=== PATIENT | male | born 1970 | race Caucasian/White ===

== ENCOUNTER 2023-02-05 10:46 | Outpatient (CLI) | payer BC, SELFPAY ==
--- NOTE | 2023-02-05 11:04 | MR_ITS ---
WS: [id number] MRI CERVICAL SPINE NONCONTRAST TECHNIQUE: Sagittal T1, T2 and STIR imaging. Axial T2, gradient, and fiesta imaging. CLINICAL INFORMATION: CHRONIC NECK PAIN COMPARISON: None. FINDINGS: Straightening of the normal cervical lordosis. Disc osteophyte complex worse at C5-C6 endplate degene rative changes. Moderate central canal stenosis at this level with indentation slight flattening of t he cervical cord. C2-C3: Mild facet arthropathy. Mild LEFT and no significant RIGHT foraminal narrowing. C3-C4: Mild LEFT and no RIGHT foraminal narrowing. Mild facet arthropathy. Spinal canal is patent. C4-C5: Mild disc osteophytic ridging. Slight effacement of ventral thecal sac. Mild LEFT greater than RIGHT bony foraminal narrowing. Mild facet arthropathy. C5-C6: Disc osteophyte complex with moderate central canal stenosis. Indentation and flattening of th e cervical cord. Severe bilateral bony foraminal narrowing. C6-C7: Mild disc osteophyte complex with endplate ridging. Mild/moderate bilateral bony foraminal kaylin rowing. Mild facet arthropathy. C7-T1: Normal. Visualized brain stem structures: Normal. Prevertebral soft tissues: Normal. MR/MR cervical spin wo con* [id number] IMPRESSION: 1. Straightening with slight reversal normal cervical lordosis. 2. Moderate central canal stenosis C5-C6 due to disc osteophyte complex with i ndentation flattening of the cervical cord. 3. Severe bilateral bony foraminal narrowing C5-C6. 4. Otherwise mild to moderate bony foraminal narrowing worse at LEFT C4-C5 and bilateral C6-C7.
--- NOTE | 2023-02-05 11:05 | MR_ITS ---
WS: [id number] MRI THORACIC SPINE WITHOUT CONTRAST TECHNIQUE: Sagittal T1, T2 and STIR imaging. Axial T2 imaging. Noncontrast imaging obtained. CLINICAL INFORMATION: CHRONIC THORACIC PAIN COMPARISON: None. FINDINGS: Mild thoracic curve. No acute compression. No high-grade central canal stenosis. Cord signal is brandt l. No significant disc extrusion or protrusion. Mild facet arthropathy lower thoracic spine. Mild dez ateral T10-T11 and T11-T12 bony foraminal narrowing. Normal caliber thoracic aorta. Adrenal glands are normal. MR/MR thoracic spin wo con* [id number] IMPRESSION: 1. Mild thoracic curve. No acute compression. No high-grade central canal sten osis. 2. Cord signal is normal. 3. Mild facet arthropathy lower thoracic spine. 4. Mild bilateral bony foraminal narrowing T10-T11 and T11-T12.
== END 2023-02-05 10:47 | disposition home or self-care (01) ==
PROVIDERS: PCP Nurse Practitioner Family; Visit Provider Nurse Practitioner Family
DX: M54.12 Radiculopathy, cervical region (principal); M48.02 Spinal stenosis, cervical region; M47.814 Spondylosis without myelopathy or radiculopathy, thoracic region; M25.78 Osteophyte, vertebrae; G89.29 Other chronic pain
CPT/HCPCS: 72141; 72146

== ENCOUNTER → 2023-02-12 08:12 | Outpatient (BNVA) | payer BC, SELFPAY | PROVIDERS: PCP Nurse Practitioner Family; Visit Provider Orthopaedic Surgery | DX: M47.22 Other spondylosis with radiculopathy, cervical region (principal); M54.2 Cervicalgia; M54.9 Dorsalgia, unspecified | CPT/HCPCS: 72050; 72070 ==

== ENCOUNTER 2023-03-19 08:10 | Outpatient (RCR) | payer BC, SELFPAY | END 2023-04-08 23:59 | disposition home or self-care (01) | LOC: SPT 08:10 | PROVIDERS: PCP Nurse Practitioner Family; Visit Provider Orthopaedic Surgery | DX: M47.22 Other spondylosis with radiculopathy, cervical region (principal) | CPT/HCPCS: 97110; 97161 ==

== ENCOUNTER 2023-04-09 06:00 | Outpatient (RCR) | payer BC, SELFPAY | END 2023-04-26 23:59 | disposition home or self-care (01) | LOC: SPT 06:00 | PROVIDERS: PCP Nurse Practitioner Family; Visit Provider Orthopaedic Surgery | DX: M47.22 Other spondylosis with radiculopathy, cervical region (principal) | CPT/HCPCS: 97110 ==

== ENCOUNTER 2024-11-01 01:54 | Emergency (ER) | payer BC, SELFPAY ==
[2024-11-01 02:10] VITALS: BP 152/96; PULSE 67; RESP 20; TEMP 36.6; O2SAT 96; BMI 32.1
--- NOTE | 2024-11-01 02:20 | CTR_ITS ---
PROCEDURE INFORMATION: Exam: CT Abdomen And Pelvis Without Contrast Exam date and time: 11/01/2024 2:25 AM Age: 54 years old Clinical indication: Abdominal pain; Right; C/O RT flank pain; Additional info: R flank pain TECHNIQUE: Imaging protocol: Computed tomography of the abdomen and pelvis without contrast. Radiation optimization: All CT scans at this facility use at least one of these dose optimization techniques: automated exposure control; mA and/or kV adjustment per patient size (includes targeted exams where dose is matched to clinical indication); or iterative reconstruction. COMPARISON: MR thoracic spin wo con* [id number] 02/05/2023 12:01 PM RADIATION DOSE METRICS: Total DLP (mGy-cm): 1087.83 FINDINGS: Liver: Normal. No mass. Gallbladder and biliary ducts: Normal. No calcified stones. No ductal dilation. Pancreas: Normal. No ductal dilation. Spleen: Normal. No splenomegaly. Adrenal glands: Normal. No mass. Kidneys and ureters: Additional small nonobstructive bilateral renal stones. Scarring lower pole left kidney. Right perinephric and periureteral stranding. Stomach and bowel: Unremarkable. No obstruction. No mucosal thickening. Appendix: No evidence of appendicitis. Intraperitoneal space: Unremarkable. No free air. No significant fluid collection. Vasculature: Unremarkable. No abdominal aortic aneurysm. Lymph nodes: Unremarkable. No enlarged lymph nodes. Urinary bladder: Unremarkable as visualized. Reproductive: There is moderate prostate hypertrophy. Bones/joints: There is a 7 x 5 mm stone in the mid right ureter at the level of the sacroiliac joint causing mild hydronephrosis. Soft tissues: Unremarkable. CT/CT kidney stone [id number] IMPRESSION: There is a 7 x 5 mm stone in the mid right ureter at the level of the sacroiliac joint causing mild hydronephrosis.
[2024-11-01 02:40] VITALS: BP 152/96; PULSE 68; RESP 20; O2SAT 97
--- NOTE | 2024-11-01 02:40 | ED_ITS ---
HPI - Male Genitourinary 2 General: Chief complaint: Urogenital-Male Stated complaint: Kidney Stone Pain lower right back Time Seen by Provider: 11/01/24 02:08 History of Present Illness: 54-year-old male with a history of kidne y stones. He presents with relatively sudden onset of right flank pain last night. Has had some associated nausea. He took medication at home which seemed to improve his symptoms to some degree. Pain is now coming and going. No fever. Urine looks darker than normal. Related Data Home Medications ?Medication ?Instructions ?Recorded ?Confirmed ibuprofen 200 mg capsule 200 mg PO Q6H PRN 02/12/23 0 03/05/23 Previous Rx's ?Medication ?Instructions ?Recorded ondansetron 4 mg disintegrating 4 mg PO Q6H PRN nausea and 11/01/24 tablet vomiting #14 tabs oxycodone-acetaminophen 7.5 mg-325 1 tab PO Q6H PRN pa in #10 tabs 11/01/24 mg tablet (Percocet) tamsulosin 0.4 mg capsule (Flomax) 0.4 mg PO DAILY #7 caps 11/01/24 Allergies Allergy/AdvReac Type Severity Reaction Status Date / Time No Known Allergies Allergy Unverified 03/05/23 14:19 PFSH ED 2 PFSH: Social History Smoking and tobacco/nicotine status: current every day tobacco/nicotine user Quit status (tobacco/nicotine): considering quitting Alcohol intake: current Alcohol intake frequency: holidays/special occasions only Physical Exam 2 Const: COMMON NORMALS: no acute distress GENERAL APPEARANCE: cooperative; not frail appearing HENMT: COMMON NORMALS: normocephalic, atraumatic and Normal external nose present HEAD & SCALP: normocephalic and atraumatic FACE & SINUS: normal facial exam and face symmetric NOSE: Normal external nose present Eye: COMMON NORMALS: Equal, round and reactive pupils present and EOMs intact bilaterally PUPIL: Yes Equal, round and reactive pupils present Neck/C-Spine: GENERAL: Yes trachea midline Chest: CHEST: Yes Symmetrical chest wall rise Resp: COMMON NORMALS: normal respiratory effort, No retractions, No use of accessory muscles and clear to auscultation bilaterally AUSCULTATION: clear to auscultation bilaterally Cardio: COMMON NORMALS: regular rate and regular rhythm RATE: regular rate RHYTHM: regular rhythm GI: COMMON NORMALS: Normal to inspection, nondistended, normoactive bowel sounds present PALPATION: Yes Tenderness to palpation present (GI) Details: RLQ : BLADDER/KIDNEY EXAM: Yes CVA tenderness on the right Back/Pelvis: GENERAL BACK: Yes CVA tenderness Extremity: COMMON NORMALS: no pedal edema Neuro: SIOBHAN COMA SCALE: document GCS findings Tappen coma scale eye opening: Spontaneous Siobhan coma scale verbal response: Orientated Siobhan coma scale motor response: Obey commands Siobhan coma scale total score: 15 S ENSORY EXAM: Yes extremities (intact) Psych: COMMON NORMALS: speech normal SPEECH: Yes normal speech Skin: COMMON NORMALS: no rashes or lesions noted GENERAL SKIN EXAM: no rashes or lesions noted Course 2 Vital Signs: Vital signs: Vital Signs Temperature 98 F 11/01/24 02:10 Pulse Rate 68 11/01/24 02:40 Respiratory Rate 20 H 11/01/24 02:40 Blood Pressure 152/96 11/01/24 02:40 Pulse Oximetry 97 11/01/24 02:40 MDM - Male Medical Decision Making Vitals are stable. He is pain-free currently. His CBC is normal. BMP is not remarkable. Abdominal CT shows a 5 x 7 mm stone in the mid right ureter. No infection. Pain medication, Flomax. Follow-up with urology as an outpatient. Lab Data 11/01/24 02:48 11/01/24 02:48 Radiology Impressions Abdomen/Pelvis CT 11/01/24 02:20 IMPRESSION: There is a 7 x 5 mm stone in the mid right ureter at the level of the sacroiliac joint causing mild hydronephrosis. Laboratory Results WBC 10.67 10^3/uL (3.29-11.43) 11/01/24 02:48 Corrected WBC Cancelled 11/01/24 02:08 RBC 4.84 10^6/uL (3.85-5.65) 11/01/24 02:48 Hgb 14.70 g/dL (11.27-16.99) 11/01/24 02:48 Hct 43.5 % (37-53) 11/01/24 02:48 MCV 89.9 fl (82-101) 11/01/24 02:48 MCH 30.4 pg (27-33) 11/01/24 02:48 MCHC 33.8 g/dL (30-55) 11/01/24 02:48 RDW 12.8 % (12.1-15.1) 11/01/24 02:48 Plt Count 199 10^3/cmm (157-399) 11/01/24 02:48 MPV 9.4 fL (7.4-10.4) 11/01/24 02:48 Gran % Cancelled 11/01/24 02:08 Neut % (Auto) 81.8 % 11/01/24 02:48 Lymph % (Auto) 11.5 % 11/01/24 02:48 [place] % (Auto) 5.3 % 11/01/24 02:48 Eos % (Auto) 0.7 % 11/01/24 02:48 Baso % (Auto) 0.4 % 11/01/24 02:48 Neut # (Auto) 8.73 10^3/uL (1.8-7.7) H 11/01/24 02:48 Lymph # (Auto) 1.2 10^3/uL (0.8-4.8) 11/01/24 02:48 [place] # (Auto) 0.6 10^3/uL (0.2-0.9) 11/01/24 02:48 Eos # (Auto) 0.1 10^3/uL (0.0-0.8) 11/01/24 02:48 Baso # (Auto) 0.0 10^3/uL (0.0-0.1) 11/01/24 02:48 Absolute Gran (auto) Cancelled 11/01/24 02:08 Nucleated RBC % (auto) 0 % 11/01/24 02:48 Nucleated RBCs # 0.0 /100WBC 11/01/24 02:48 Sodium 140 mmol/L (136-145) 11/01/24 02:48 Potassium 3.9 mmol/L (3.5-5.1) 11/01/24 02:48 Chloride 106 mmol/L (98-107) 11/01/24 02:48 Carbon Dioxide 26 mmol/L (22-29) 11/01/24 02:48 Anion Gap 11.9 (5-19) 11/01/24 02:48 BUN 24 mg/dL (6-20) H 11/01/24 02:48 Creatinine 1.0 mg/dL (0.7-1.2) 11/01/24 02:48 GFR Calculation 77.3 mL/min (90-130) L 11/01/24 02:48 Glucose 120 mg/dL (65-115) H 11/01/24 02:48 Calculated Osmolality 295 mOsm/kg (285-295) 11/01/24 02:48 Calcium 8.5 mg/dL (8.5-10.5) 11/01/24 02:48 Total Bilirubin 0.4 mg/dL (0.15-1.2) 11/01/24 02:48 Direct Bilirubin 0.20 mg/dL (0.00-0.30) 11/01/24 02:48 AST 11 U/L (0-40) 11/01/24 02:48 ALT 17 U/L (0-41) 11/01/24 02:48 Alkaline Phosphatase 86 U/L (40-130) 11/01/24 02:48 C-Reactive Protein 3.0 mg/L (0.0-4.9) 11/01/24 02:48 Total Protein 6.1 g/dL (6.6-8.7) L 11/01/24 02:48 Albumin 4.0 g/dL (3.5-5.2) 11/01/24 02:48 Globulin 2.1 g/dL (1.3-4.6) 11/01/24 02:48 Lipase 26 U/L (13-60) 11/01/24 02:48 Urine Color Yellow (Yellow) 11/01/24 03:23 Urine Appearance Clear (CLEAR) 11/01/24 03:23 Urine pH 5.5 (5-7) 11/01/24 03:23 Ur Specific [place] 1.016 (1.005-1.030) 11/01/24 03:23 Urine Protein Trace (Negative) A 11/01/24 03:23 Urine Glucose (UA) Negative (Normal) 11/01/24 03:23 Urine Ketones Negative (Negative) 11/01/24 03:23 Urine Blood 2+ (Negative) A 11/01/24 03:23 Urine Nitrate Negative (Negative) 11/01/24 03:23 Urine Bilirubin Negative (Negative) 11/01/24 03:23 Urine Urobilinogen 1.0 mg/dL (Negative) 11/01/24 03:23 Ur Leukocyte Esterase Negative (Negative) 11/01/24 03:23 Urine RBC 5-10 /hpf (0-2) H 11/01/24 03:23 Urine WBC 0-4 /hpf (0-5) H 11/01/24 03:23 Ur Squamous Epith Cells 0-4 /hpf (0-5) H 11/01/24 03:23 Amorphous Sediment Not Reportable 11/01/24 03:23 Urine Bacteria Trace /hpf (NONE) 11/01/24 03:23 All radiology interpretation(s) finalized by discharge Discharge Plan Discharge Patient Disposition: Home Clinical Impression: Ureterolithiasis Condition: Stable Prescriptions: New oxycodone-acetaminophen [Percocet] 7.5-325 mg tablet 1 tab PO Q6H PRN (Reason: pain) Qty: 10 0RF ondansetron 4 mg tablet,disintegrating 4 mg PO Q6H PRN (Reason: nausea and vomiting) Qty: 14 0RF tamsulosin [Flomax] 0.4 mg capsule 0.4 mg PO DAILY Qty: 7 0RF Discontinued hydrocodone-acetaminophen 5-325 mg tablet 1 tab PO BID PRN No Action ibuprofen 200 mg capsule 200 mg PO Q6H PRN Discharge Orders: Discharge ED (Routine); Ordered 11/01/24 Ordered By: Jonathan Stephenson Referrals: Cj Pickett [Referring] - 4-7 days Ny Kline APRN [Primary Care Provider] - Patient Instructions: Kidney Stones (ED), Opioid Safety, Pain Management Activity Restrictions/Additional Instructions: You may alternate pain medication with anti-inflammatories such as ibuprofen. Other medications as directed. Drink plenty of clear liquids. Call urology Saturday morning for a follow-up appointment next week. Print Language: Thai Coding Level of Care Code ED Coordinate Measuring Machine Operator for Uli Johnston
[2024-11-01] MEDS: ketorolac 30 mg/mL INJ IVP (02:41)
[2024-11-01] MEDS: morphine 4 mg/mL SDV 1 mL IVP (02:42)
[2024-11-01] MEDS: ondansetron 2 mg/ML SDV 2 mL 4 MG IVP (02:42)
[2024-11-01 02:53] LABS: Basophils % 0.4 %; Eosinophils # 0.1 10^3/uL (0.0-0.8); Eosinophils % 0.7 %; Hematocrit 43.5 % (37-53); Lymphocytes # 1.2 10^3/uL (0.8-4.8); Lymphocytes % 11.5 %; Mean Corpuscular HGB Conc 33.8 g/dL (30-55); Mean Corpuscular Hemoglobin 30.4 pg (27-33); Mean Corpuscular Volume 89.9 fl (82-101); Mean Platelet Volume 9.4 fL (7.4-10.4); Monocytes # 0.6 10^3/uL (0.2-0.9); Monocytes % 5.3 %; Neutrophils # 8.73 10^3/uL (1.8-7.7); Neutrophils % 81.8 %; Nucleated Red Blood Cells % 0 %; Platelet Count 199 10^3/cmm (157-399); Red Blood Count 4.84 10^6/uL (3.85-5.65); Red Cell Distribution Width 12.8 % (12.1-15.1); White Blood Count 10.67 10^3/uL (3.29-11.43)
[2024-11-01 03:20] LABS: Alanine Aminotransferase 17 U/L (0-41); Alkaline Phosphatase 86 U/L (40-130); Anion Gap 11.9 (5-19); Aspartate Amino Transferase 11 U/L (0-40); Blood Urea Nitrogen 24 mg/dL (6-20); Calcium 8.5 mg/dL (8.5-10.5); Carbon Dioxide 26 mmol/L (22-29); Chloride 106 mmol/L (98-107); Creatinine Clr Calc Pharmacy 110.4591; Globulin 2.1 g/dL (1.3-4.6); Glomerular Filtration Rate 77.3 mL/min (90-130); Glucose 120 mg/dL (65-115); Lipase 26 U/L (13-60); Osmolality Calculated 295 mOsm/kg (285-295); Potassium 3.9 mmol/L (3.5-5.1); Sodium 140 mmol/L (136-145); Total Bilirubin 0.4 mg/dL (0.15-1.2); Total Protein 6.1 g/dL (6.6-8.7)
[2024-11-01 03:46] LABS: Bilirubin Urine Negative (Negative); Blood Urine 2+ (Negative); Glucose Urine UA Negative (Normal); Ketones Urine Negative (Negative); Leukocyte Esterase Urine Negative (Negative); Nitrate Urine Negative (Negative); Protein Urine Trace (Negative); Specific Gravity, Urine 1.016 (1.005-1.030); Urine Appearance Clear (CLEAR); Urine Color Yellow (Yellow); pH Urine 5.5 (5-7)
[2024-11-01 04:26] LABS: Add Urine Microscopic? YES; Bacteria Urine TRACE /hpf; Squamous Epithelial Cell Urine 0-4 /hpf (0-5); WBC Urine 0-4 /hpf (0-5)
[2024-11-01 04:49] VITALS: BP 134/90; PULSE 67; RESP 16; O2SAT 98
== END 2024-11-01 04:51 | disposition home or self-care (01) ==
PROVIDERS: Emergency Provider Emergency Medicine; PCP Nurse Practitioner Family
DX: N20.1 Calculus of ureter (principal); Z72.0 Tobacco use
CPT/HCPCS: 74176; 80048; 80076; 81001; 83690; 85025; 86140; 96374; 96375; 99285; J1885; J2270; J2405